=== PATIENT | male | born 1945 | race Caucasian/White ===

== ENCOUNTER 2016-10-29 21:39 | Emergency (ER) | payer BC ==
[2016-10-29] MEDS ORDERED: Famotidine In NaCl 20 mg/50 ml Premix Bag ONE (22:04)
[2016-10-29] MEDS ORDERED: Piperacillin/Tazobactam 3.375 GM VIAL ONE (22:04)
[2016-10-29] MEDS ORDERED: Fentanyl 100 MCG/2 ML VIAL ONE (22:04)
[2016-10-29 22:14] LABS: #Eosinphils 0.3 thou/uL (0.0-0.7); #Lymphocytes 1.7 thou/uL (1.20-3.40); #Monocytes 0.5 thou/uL (0.11-0.59); #Neutrophils 8.3 thou/uL (1.40-6.50); %Basophils 0.3 % (0.0-1.0); %Eosinophils 2.5 % (0.0-10.0); %Lymphocytes 15.5 % (21.0-51.0); %Monocytes 4.4 % (0.0-10.0); %Neutrophils 77.3 % (42.0-75.0); Hemoglobin 16.5 g/dL (14.0-18.0); Mean Corpuscular HGB CONC 33.5 g/dL (32.0-36.0); Mean Corpuscular Hemoglobin 30.2 pg (27.0-31.0); Mean Corpuscular Volume 90.3 fl (80.0-94.0); Mean Platelet Volume 7.9 fL (7.4-10.4); Platelet Count 196 thou/uL (130-400); RBC Distribution Width 12.3 % (11.5-14.5); Red Blood Cell (RBC) Count 5.45 mill/uL (4.70-6.10); White Blood Cell (WBC) Count 10.7 thou/uL (4.8-10.8)
[2016-10-29 22:26] LABS: ALT (SGPT) 20 U/L (0-55); AST (SGOT) 9 U/L (5-34); Albumin 3.4 g/dL (3.4-4.8); Alkaline Phosphatase 75 U/L (40-150); Anion Gap 13 mmol/L (10-20); BUN (Urea Nitrogen) 25 mg/dL (8.4-25.7); Bilirubin, Total 0.9 mg/dL (0.2-1.2); Calc. Creatinine Clearance 0 mL/min (70-130); Calcium 9.9 mg/dL (7.8-10.44); Carbon Dioxide 27 mmol/L (23-31); Chloride 98 mmol/L (98-107); Estimated GFR-MDRD 52; Glucose 347 mg/dL (80-115); Lipase 9 U/L (8-78); Potassium 4.4 mmol/L (3.5-5.1); Protein, Total 6.4 g/dL (5.8-8.1); Sodium 134 mmol/L (136-145)
--- NOTE | 2016-10-29 22:59 | RAD ---
SINGLE VIEW OF THE CHEST: Comparison: 06-25-15 History: Cough. FINDINGS: Single view of the chest shows a normal size cardiomediastinal silhouette. There is free air beneat h right hemidiaphragm. There is no evidence of consolidation, mass, or pleural effusion. Air is se en in the neck soft tissues. No pneumothorax is visualized. IMPRESSION: 1. Free air in the abdomen. 2. Air in the neck soft tissues. Dr. Cardenas notified of the findings at 10:29 p.m. on 10-29-16. POS: [facility]
--- NOTE | 2016-10-29 23:11 | CT ---
CT OF THE ABDOMEN AND PELVIS WITH CONTRAST: Comparison: 08-10-16, chest x-ray 10-29-16 History: Free air under the diaphragm on chest x-ray. Patient has had cough and congestion. Patie nt has been on antibiotics and Prednisone. Abdominal pain since . No bowel movement for tw o days. Technique: Multiple contiguous axial images were obtained in a CT of the abdomen and pelvis with co ntrast. Coronal reformats were performed. FINDINGS: There are numerous diverticula in the sigmoid colon. There are stranding changes surrounding the si gmoid colon. There are multiple foci of free air surrounding the sigmoid colon consistent with perf orated acute diverticulitis. There is free air in the abdomen. The free air is also seen extending into the retroperitoneum and dissecting upwards into the mediastinum. The small bowel is normal in caliber without evidence of distention. No free fluid is seen in the abdomen. The liver, gallbladder, kidneys, adrenal glands, spleen, and pancreas are unremarkable. No abdomina l or pelvic lymphadenopathy are seen. Atherosclerotic calcifications are seen in the aorta. IMPRESSION: 1. Perforated acute diverticulitis. The air from the perforated diverticulitis is seen free in the peritoneum and is dissecting in the retroperitoneum and up the mediastinum. This is seen in the ne ck on the chest x-ray. 2. Dr. Cardenas was aware of the free air beneath the diaphragm at the time of the chest x-ray. POS: [facility]
[2016-10-29 23:15] LABS: Bilirubin Negative (Negative); Blood, Urine Negative (Negative); Clarity Clear (Clear); Glucose, Urine (Dipstick) 500 mg/dL (Negative); Leukocyte Negative (Negative); Nitrite Negative (Negative); Protein, Urine (Dipstick) Negative (Neg-Trace)
== END 2016-10-29 23:14 | disposition home or self-care (01) ==
LOC: BURERS 21:39
DX: K63.1 Perforation of intestine (nontraumatic) (principal); I25.10 Atherosclerotic heart disease of native coronary artery without angina pectoris; I25.2 Old myocardial infarction; I10 Essential (primary) hypertension; M06.9 Rheumatoid arthritis, unspecified; F41.9 Anxiety disorder, unspecified; Z79.2 Long term (current) use of antibiotics; Z79.899 Other long term (current) drug therapy
CPT/HCPCS: 36415; 71010; 74177; 80053; 81003; 83605; 83690; 85025; 87040; 87086; 93005; 96365; 96375; J2543; J3010

== ENCOUNTER 2020-07-18 16:07 | Emergency (ER) | payer BC, MEDICARE ==
[2020-07-18] MEDS ORDERED: Benzonatate 100 MG CAP ONE (17:23)
[2020-07-18] MEDS ORDERED: AMOXicillin 250 MG CAP ONE (17:23)
--- NOTE | 2020-07-19 07:07 | RAD ---
PORTABLE CHEST: Date: 07/18/2020 An AP portable film at 1707 hours is compared with a 09/04/2018 study. The heart is normal in size and the lungs are clear. No vascular congestion, edema, or pleural effusi on seen. No focal pulmonary infiltrates were noted. IMPRESSION: No acute thoracic finding. POS: [facility]
[2020-07-19 18:03] LABS: SARS-CoV-2 MS2 Positive; SARS-CoV-2 N Gene Negative; SARS-CoV-2 S Gene Negative; SARS-CoV-2 by NAA Not Detected (NotDetected); SARS-CoV-2 orf1ab Negative
== END 2020-07-18 17:39 | disposition home or self-care (01) ==
LOC: BURERS 16:07
DX: J06.9 Acute upper respiratory infection, unspecified (principal); I25.10 Atherosclerotic heart disease of native coronary artery without angina pectoris; I25.2 Old myocardial infarction; I10 Essential (primary) hypertension; M06.9 Rheumatoid arthritis, unspecified; Z79.899 Other long term (current) drug therapy; Z20.828 Contact with and (suspected) exposure to other viral communicable diseases
CPT/HCPCS: 71045; 87635; 93005; U0003

== ENCOUNTER 2022-05-10 08:44 | Emergency (ER) | payer MEDICARE ==
[2022-05-10] MEDS ORDERED: Iopamidol 370 76% 100 ML VIAL FS ONE (08:45)
[2022-05-10 08:59] LABS: #Lymphocytes 1.5 thou/uL (1.20-3.40); #Monocytes 0.2 thou/uL (0.11-0.59); #Neutrophils 6.6 thou/uL (1.40-6.50); %Basophils 0.2 % (0.0-1.0); %Lymphocytes 18.5 % (21.0-51.0); %Monocytes 2.4 % (0.0-10.0); Hemoglobin 15.3 g/dL (14.0-18.0); Mean Corpuscular HGB CONC 33.2 g/dL (32.0-36.0); Mean Corpuscular Hemoglobin 31.2 pg (27.0-31.0); Mean Corpuscular Volume 93.9 fL (78.0-98.0); Mean Platelet Volume 7.5 fL (7.4-10.4); Platelet Count 237 thou/uL (130-400); RBC Distribution Width 11.4 % (11.5-14.5); White Blood Cell (WBC) Count 8.4 thou/uL (4.8-10.8)
[2022-05-10] MEDS ORDERED: Nitroglycerin 0.4 MG TAB 1 EACH ONE (09:00)
[2022-05-10] MEDS ORDERED: Morphine 4 MG/ML VIAL ONE (09:00)
[2022-05-10] MEDS ORDERED: Aspirin Chewable 81 MG TAB ONE (09:00)
[2022-05-10 09:13] LABS: ALT (SGPT) 23 U/L (8-55); AST (SGOT) 20 U/L (5-34); Albumin 4.4 g/dL (3.4-4.8); Alkaline Phosphatase 62 U/L (40-110); Anion Gap 18 mmol/L (10-20); BUN (Urea Nitrogen) 37 mg/dL (8.4-25.7); Bilirubin, Total 0.6 mg/dL (0.2-1.2); Calc. Creatinine Clearance 0 mL/min (70-130); Calcium 10.8 mg/dL (7.8-10.44); Carbon Dioxide 22 mmol/L (23-31); Chloride 101 mmol/L (98-107); Estimated GFR 45; Globulin 2.9 g/dL (2.4-3.5); Glucose 207 mg/dL (83-110); Potassium 4.2 mmol/L (3.5-5.1); Protein, Total 7.3 g/dL (5.8-8.1); Sodium 137 mmol/L (136-145)
[2022-05-10] MEDS ORDERED: Morphine 10 MG/ML VIAL ONE (10:26)
== END 2022-05-10 11:28 | disposition short-term general hospital (02) ==
LOC: BURERS 08:44
DX: R07.2 Precordial pain (principal); I10 Essential (primary) hypertension; Z95.5 Presence of coronary angioplasty implant and graft
CPT/HCPCS: 71045; 71275; 74174; 80053; 83880; 84484; 85025; 93005; 96374; 96376; J2270; Q9967

== ENCOUNTER 2022-05-14 14:42 | Emergency (ER) | payer MEDICARE ==
[2022-05-14 15:27] LABS: #Basophils 0.1 thou/uL (0.0-0.2); #Eosinphils 0.1 thou/uL (0.0-0.7); #Lymphocytes 1.5 thou/uL (1.20-3.40); #Monocytes 0.4 thou/uL (0.11-0.59); #Neutrophils 4.4 thou/uL (1.40-6.50); %Basophils 1.2 % (0.0-1.0); %Lymphocytes 22.8 % (21.0-51.0); %Monocytes 6.8 % (0.0-10.0); %Neutrophils 67.2 % (42.0-75.0); Hemoglobin 14.7 g/dL (14.0-18.0); Mean Corpuscular HGB CONC 34.3 g/dL (32.0-36.0); Mean Corpuscular Hemoglobin 32.2 pg (27.0-31.0); Mean Corpuscular Volume 93.9 fL (78.0-98.0); Platelet Count 216 thou/uL (130-400); RBC Distribution Width 11.2 % (11.5-14.5); Red Blood Cell (RBC) Count 4.57 mill/uL (4.70-6.10); White Blood Cell (WBC) Count 6.6 thou/uL (4.8-10.8)
[2022-05-14 15:40] LABS: ALT (SGPT) 16 U/L (8-55); AST (SGOT) 14 U/L (5-34); Albumin 4.1 g/dL (3.4-4.8); Alkaline Phosphatase 74 U/L (40-110); Anion Gap 14 mmol/L (10-20); BUN (Urea Nitrogen) 23 mg/dL (8.4-25.7); Bilirubin, Total 0.6 mg/dL (0.2-1.2); Calc. Creatinine Clearance 0 mL/min (70-130); Calcium 10.2 mg/dL (7.8-10.44); Carbon Dioxide 23 mmol/L (23-31); Chloride 102 mmol/L (98-107); Estimated GFR 52; Globulin 2.9 g/dL (2.4-3.5); Glucose 202 mg/dL (83-110); Potassium 4.1 mmol/L (3.5-5.1); Sodium 135 mmol/L (136-145)
[2022-05-14] MEDS ORDERED: Ondansetron ODT 4 MG TAB ONE (15:44)
[2022-05-14 16:09] LABS: CKMB 3.1 ng/mL (0-6.6)
[2022-05-14] MEDS ORDERED: Aspirin Chewable 81 MG TAB ONE (16:28)
[2022-05-14 18:01] LABS: Troponin I 0.883 ng/mL (< 0.028)
== END 2022-05-14 18:20 | disposition home or self-care (01) ==
LOC: BURERS 14:42
DX: I95.1 Orthostatic hypotension (principal); R11.2 Nausea with vomiting, unspecified; I10 Essential (primary) hypertension; E11.9 Type 2 diabetes mellitus without complications; Z79.899 Other long term (current) drug therapy; Z79.01 Long term (current) use of anticoagulants
CPT/HCPCS: 36416; 80053; 82553; 83880; 84484; 85025; 99284; 36415-59; Q0162

== ENCOUNTER 2024-03-06 07:59 | Emergency (ER) | payer MEDICARE ==
[2024-03-06 08:36] LABS: #Lymphocytes 0.9 thou/uL (1.20-3.40); #Monocytes 0.2 thou/uL (0.11-0.59); #Neutrophils 3.1 thou/uL (1.40-6.50); %Basophils 0.5 % (0.0-1.0); %Eosinophils 0.5 % (0.0-10.0); %Lymphocytes 21.2 % (21.0-51.0); %Monocytes 4.2 % (0.0-10.0); %Neutrophils 73.7 % (42.0-75.0); Hematocrit 36.8 % (42.0-52.0); Hemoglobin 12.1 g/dL (14.0-18.0); Mean Corpuscular HGB CONC 32.8 g/dL (32.0-36.0); Mean Corpuscular Hemoglobin 29.9 pg (27.0-31.0); Mean Corpuscular Volume 91.2 fl (78.0-98.0); Mean Platelet Volume 6.9 fL (7.4-10.4); Platelet Count 136 10x3/uL (130-400); RBC Distribution Width 12.4 % (11.5-14.5); Red Blood Cell (RBC) Count 4.03 mill/uL (4.70-6.10); White Blood Cell (WBC) Count 4.1 10x3/uL (4.8-10.8)
[2024-03-06] MEDS ORDERED: Acetaminophen 500 MG TAB ONE (08:43)
[2024-03-06 08:53] LABS: ALT (SGPT) 27 U/L (8-55); AST (SGOT) 27 U/L (5-34); Albumin 3.3 g/dL (3.4-4.8); Alkaline Phosphatase 69 U/L (40-110); Anion Gap 13 mmol/L (10-20); BUN (Urea Nitrogen) 27 mg/dL (8.4-25.7); Bilirubin, Total 0.6 mg/dL (0.2-1.2); Calc. Creatinine Clearance 0 mL/min (70-130); Calcium 9.7 mg/dL (7.8-10.44); Carbon Dioxide 26 mmol/L (23-31); Chloride 102 mmol/L (98-107); Estimated GFR 43; Globulin 3.1 g/dL (2.4-3.5); Glucose 153 mg/dL (83-110); Protein, Total 6.4 g/dL (5.8-8.1); Sodium 137 mmol/L (136-145)
[2024-03-06 08:54] LABS: Troponin I 0.015 ng/mL (< 0.028)
[2024-03-06 09:27] LABS: Influenza A by NAA Not Detected (NotDetected); Influenza B by NAA Not Detected (NotDetected); SARS-CoV-2 NAA Rapid Test DETECTED (NotDetected)
[2024-03-06 09:50] LABS: Bilirubin Negative (Negative); Blood, Urine Negative (Negative); Clarity Clear (Clear); Glucose, Urine (Dipstick) Negative (Negative); Ketone, Urine Negative (Negative); Leukocyte Negative (Negative); Nitrite Negative (Negative); Protein, Urine (Dipstick) 30 mg/dL (Neg-Trace)
[2024-03-06 09:57] LABS: Bacteria/HPF None Seen HPF (None Seen); CAUTI Indications for Culture Fever or rigors; RBC/HPF None Seen HPF (0-3); Squamous Epithelial None Seen HPF (0-3); WBC/HPF 0-3 HPF (0-3)
[2024-03-06 09:58] LABS: Urine Culture Reflex No No
== END 2024-03-06 10:47 | disposition home or self-care (01) ==
LOC: BURERS 07:59
DX: U07.1 COVID-19 (principal); I25.10 Atherosclerotic heart disease of native coronary artery without angina pectoris; I25.2 Old myocardial infarction; I10 Essential (primary) hypertension; E11.9 Type 2 diabetes mellitus without complications; M06.9 Rheumatoid arthritis, unspecified; Z95.5 Presence of coronary angioplasty implant and graft; Z79.82 Long term (current) use of aspirin; Z79.4 Long term (current) use of insulin; Z79.899 Other long term (current) drug therapy
CPT/HCPCS: 36415; 70450; 71045; 80053; 81001; 83605; 83880; 84484; 85025; 87040; 93005; 94760; 96360

== ENCOUNTER 2024-03-31 16:24 | Emergency (ER) | payer MEDICARE ==
[2024-03-31 17:08] LABS: #Basophils 0.1 thou/uL (0.0-0.2); #Eosinphils 0.3 thou/uL (0.0-0.7); #Lymphocytes 1.5 thou/uL (1.20-3.40); #Monocytes 0.5 thou/uL (0.11-0.59); #Neutrophils 3.6 thou/uL (1.40-6.50); %Eosinophils 5.7 % (0.0-10.0); %Lymphocytes 25.4 % (21.0-51.0); %Monocytes 7.6 % (0.0-10.0); %Neutrophils 60.4 % (42.0-75.0); Hematocrit 39.7 % (42.0-52.0); Hemoglobin 13.3 g/dL (14.0-18.0); Mean Corpuscular HGB CONC 33.6 g/dL (32.0-36.0); Mean Corpuscular Hemoglobin 29.7 pg (27.0-31.0); Mean Corpuscular Volume 88.2 fl (78.0-98.0); Platelet Count 168 10x3/uL (130-400); RBC Distribution Width 12.4 % (11.5-14.5); White Blood Cell (WBC) Count 5.9 10x3/uL (4.8-10.8)
[2024-03-31 17:20] LABS: ALT (SGPT) 16 U/L (8-55); AST (SGOT) 16 U/L (5-34); Albumin 3.6 g/dL (3.4-4.8); Alkaline Phosphatase 72 U/L (40-110); Anion Gap 18 mmol/L (10-20); BUN (Urea Nitrogen) 37 mg/dL (8.4-25.7); Bilirubin, Total 0.6 mg/dL (0.2-1.2); CK (CPK) 98 U/L (30-200); Calc. Creatinine Clearance 0 mL/min (70-130); Calcium 10.6 mg/dL (7.8-10.44); Carbon Dioxide 22 mmol/L (23-31); Chloride 103 mmol/L (98-107); Estimated GFR 35; Globulin 3.2 g/dL (2.4-3.5); Glucose 202 mg/dL (83-110); Magnesium 2.1 mg/dL (1.6-2.6); Potassium 4.5 mmol/L (3.5-5.1); Protein, Total 6.8 g/dL (5.8-8.1); Sodium 138 mmol/L (136-145)
[2024-03-31] MEDS ORDERED: Dexamethasone 10 MG/ML VIAL ONE (17:25)
[2024-03-31] MEDS ORDERED: Doxycycline 100 MG CAP ONE (18:23)
== END 2024-03-31 18:30 | disposition home or self-care (01) ==
LOC: BURERS 16:24
DX: U07.1 COVID-19 (principal); E86.0 Dehydration; J18.9 Pneumonia, unspecified organism; I25.10 Atherosclerotic heart disease of native coronary artery without angina pectoris; I25.2 Old myocardial infarction; E11.9 Type 2 diabetes mellitus without complications; I10 Essential (primary) hypertension; Z79.4 Long term (current) use of insulin; Z79.899 Other long term (current) drug therapy
CPT/HCPCS: 71045; 80053; 82550; 83735; 85025; 85379; 86140; J1100; 96374